=== PATIENT | male | born 1965 | race African-American/Black ===

== ENCOUNTER → 2017-04-30 | Outpatient (CLI) | payer OTHER ==
--- NOTE | 2017-04-30 13:03 | KCIC ---
MRI Thoracic Spine without contrast History: Chronic low back pain, lumbar radiculopathy, stimulator placement Technique: Multiplanar, multi sequential noncontrast MR imaging was performed of the thoracic spine. Contrast: None Comparison: None Findings: Thoracic vertebral body stature and AP alignment are maintained. There is mild to moderate degenerative disc disease T8-9 and T9-10, minimally at more superior levels. Mild edema of the right T7-8 facet articulation and right T8 pedicle and also of the left T7-8 facet articulation is more likely to be reactive/degenerative in etiology. Thoracic cord caliber is within normal limits without focal signal abnormality. Thoracic neural foramina are not significantly narrowed. Levels with abnormalities include: T5-T6: There is a shallow posterior bulge/protrusion. Spinal canal is adequate. T6-7: There is a very shallow posterior central protrusion with mild indentation upon the ventral thecal sac, central canal not significantly narrowed measuring 11 to 12 mm. T8-9: There is minimal disc osteophyte complex and superimposed shallow protrusion greatest centrally with mild indentation upon the ventral thecal sac, overall mild narrowing of the central canal. Central thecal sac measures approximately 9 mm. T9-10: There is negligible protrusion in the right lateral recess without significant spinal stenosis. As seen on the localizer, there is cervical degenerative disc disease greatest at C5-C6 at which there is probable mild spinal stenosis, also disc osteophyte complex and bulges at C3-4 and C4-5 at which there may be mild spinal stenosis. Impression: 1. There are shallow posterior protrusions as stated most notable at T8-9 at which there is mild narrowing of the central canal. There is degenerative disc disease greatest at T8-9 and T9-10. Electronically signed by: Randall Crocker MD (04/30/2017 12:59 PM) [id number]
== END | disposition home or self-care (01) ==
LOC: KCIC MRI 11:39
PROVIDERS: ATTEND Neurological Surgery
DX: M48.04 Spinal stenosis, thoracic region (principal); M51.34 Other intervertebral disc degeneration, thoracic region; G89.29 Other chronic pain
CPT/HCPCS: 72146